=== PATIENT | female | born 1950 | race Caucasian/White ===

== ENCOUNTER 2022-04-11 16:02 | Outpatient (CLI) | payer MEDICARE, BC, SELFPAY ==
[2022-04-11 17:57] LABS: Vitamin D 25 Hydroxy* 37 ng/mL (30-80)
== END 2022-04-11 16:03 | disposition home or self-care (01) ==
PROVIDERS: PCP Internal Medicine; Visit Provider Internal Medicine
DX: E03.9 Hypothyroidism, unspecified (principal); M85.80 Other specified disorders of bone density and structure, unspecified site
CPT/HCPCS: 82306; 84443

== ENCOUNTER 2022-07-09 12:48 | Outpatient (CLI) | payer MEDICARE, BC, SELFPAY ==
--- NOTE | 2022-07-09 13:00 | CRLHL7_ITS ---
For Patients: As a result of the Cures Act, medical imaging exams and procedure reports are released immediately into your electronic medical record. You may view this report before your referring provider. If you have questions, please contact your health care provider. BILATERAL SCREENING MAMMOGRAM WITH COMPUTER-AIDED DETECTION AND TOMOSYNTHESIS TECHNIQUE: CC and MLO views were obtained. These mammographic images have been obtained using full-field digital technique. These mammographic images were interpreted with the benefit of computer-aided detection. Breast Tomosynthesis was used in this interpretation. COMPARISON FILM: 01/17/21, 07/31/19, 07/03/17. FINDINGS: There are scattered areas of fibroglandular density IMPRESSION: There is no radiographic evidence for malignancy. ASSESSMENT: BI-RADS Category 1: Negative RECOMMENDATION: Routine screening mammogram in 1 year. A lay language report of this examination will be provided to the patient. Gabriele De Anda M.D. Diagnostic Radiologist [email or web address] DEVON/[email or web address] Transcribed: 8:08 p.m. ANDRESSA/Dictated by: Gabriele De Anda MD @ 07/10/2022 11:47:00 AM (Electronically Signed)
== END 2022-07-09 12:49 | disposition home or self-care (01) ==
LOC: MAMMO 12:48
PROVIDERS: PCP Internal Medicine; Visit Provider Internal Medicine
DX: Z12.31 Encounter for screening mammogram for malignant neoplasm of breast (principal)
CPT/HCPCS: 77063; 77067

== ENCOUNTER 2022-11-16 09:18 | Outpatient (CLI) | payer MEDICARE, BC, SELFPAY | END 2022-11-16 09:19 | disposition home or self-care (01) | LOC: NFLDREF 11-17 08:31 | PROVIDERS: PCP Internal Medicine; Referring Provider Internal Medicine; Visit Provider Internal Medicine | DX: Z79.01 Long term (current) use of anticoagulants (principal) | CPT/HCPCS: 85610 ==

== ENCOUNTER 2022-12-17 13:36 | Outpatient (CLI) | payer MEDICARE, BC, SELFPAY | END 2022-12-17 13:37 | disposition home or self-care (01) | LOC: NFLDREF 12-18 02:34 | PROVIDERS: PCP Internal Medicine; Referring Provider Internal Medicine; Visit Provider Internal Medicine | DX: Z79.01 Long term (current) use of anticoagulants (principal) | CPT/HCPCS: 85610 ==

== ENCOUNTER 2023-04-08 09:00 | Outpatient (CLI) | payer MEDICARE, BC, SELFPAY | END 2023-04-08 09:01 | disposition home or self-care (01) | LOC: NFLDREF 11:21 | PROVIDERS: PCP Internal Medicine; Visit Provider Internal Medicine | DX: Z79.01 Long term (current) use of anticoagulants (principal) | CPT/HCPCS: 85610 ==

== ENCOUNTER 2023-04-30 09:45 | Emergency (ER) | payer MEDICARE, BC, SELFPAY ==
[2023-04-30 09:54] VITALS: BP 145/98; PULSE 93; RESP 14; TEMP 36.1; O2SAT 94; BMI 341.1
--- NOTE | 2023-04-30 10:04 | ED.ARRPALP ---
HPI - Arrhythmia/Palpitations General Time Seen by Provider: 10:07 Date Seen: 04/30/23 Chief Complaint: Arrhythmia/Palpitations Stated Complaint: possible afib Time Seen by Provider: 04/30/23 09:58 Source: patient, RN notes reviewed and old records reviewed Mode of arrival: ambulatory Limitations: no limitations History of Present Illness HPI narrative: Patient is a 72-year-old female presenting to the ED of her own accord with concern some skipped beats she is feeling, occasional discomfort in her chest and epigastric area, right arm pain that is happened twice, feeling shaky at times and some feeling of warmth at night between 10 and 11 with her forehead being a little sweaty. Over the last week she has noticed just a since maybe of more skipped beats. She has chronic underlying atrial fibrillation and has been on metoprolol and Coumadin, is due to have her INR checked next week. She has also noted some fleeting episodes of couple seconds where she will feel some lower central chest discomfort or epigastric discomfort, it is very fleeting, only lasting seconds. She has also had on 2 occasions with the last 1 being last night where she awoke with a little right forearm pain. She has had episodes where she has felt a little shaky more recently. Over the last week at night between 10 11 she will feel hot in her forehead will proceed by her a little bit. She has noted no fevers. She has not been sick with any cough or cold symptoms. She has had no associated GI symptoms with this. She feels fine right now. She is not having any symptomatology at this time. With her symptoms, she cannot state that there exercise induced or have any pattern. She admits that she has tapered off exercise significantly this last year but plans to try to restart. She has recently rejoin the weight loss program that she has been involved with in the past. See that her last TSH was in March of 2022, will recheck that today. complaint: skipped beats and atrial fibrillation Related Data Home Medications Medication Instructions Recorded Confirmed calcium carbonate 600 mg-vitamin 1 cap PO DAILY 05/10/22 09/05/22 D3 10 mcg (400 unit) capsule multivitamin (Multiple Vitamins 1 tab PO QAM 05/10/22 09/05/22 tablet) omega-3 fatty acids 1,250 mg 1,250 mg PO QDAY 05/10/22 09/05/22 capsule triamcinolone acetonide 0.1 % 1 applic topical BID PRN 08/30/22 09/05/22 lotion Previous Rx's Medication Instructions Recorded bupropion HCl 150 mg 24 hr tablet, 150 mg PO QDAY #90 tabs 05/10/22 extended release levothyroxine 150 mcg tablet 150 mcg PO QDAY #45 tabs 05/10/22 levothyroxine 175 mcg tablet 175 mcg PO QDAY #45 tabs 05/10/22 metoprolol succinate 100 mg 100 mg PO BID #180 tabs 05/10/22 tablet,extended release 24 hr prednisone 20 mg tablet 20 mg PO QDAY #7 tabs 08/30/22 warfarin 2.5 mg tablet 2.5 mg PO QDAY #90 tabs 01/28/23 Allergies Allergy/AdvReac Type Severity Reaction Status Date / Time levofloxacin Allergy Intermediate Joint Pain Verified 09/05/22 11:30 latex Allergy Mild itchy, rash Verified 09/05/22 11:30 codeine AdvReac Unknown Agitated Verified 04/30/23 10:02 Review of Systems Status of ROS: Reports: 10 or more systems reviewed and unremarkable except as noted in History and below PFSH PFS Surgical History History of total hysterectomy with bilateral salpingo-oophorectomy (BSO) ?Z90.710 - Acquired absence of both cervix and uterus (ICD-10) ?Z90.722 - Acquired absence of ovaries, bilateral (ICD-10) ?Z90.79 - Acquired absence of other genital organ(s) (ICD-10) History of cholecystectomy ?Z90.49 - Acquired absence of other specified parts of digestive tract (ICD-10) History of benign breast biopsy ?Z98.890 - Other specified postprocedural states (ICD-10) Family History Family/Other Depression Father Heart disease Social History Smoking Status: Never smoker Do you use any of these nicotine containing products: None Second hand tobacco smoke exposure: Yes How often do you have a drink containing alcohol: monthly or less How often do you have six or more drinks on one occasion: Never AUDIT-C Alcohol total score: 1 Non-prescribed substance use: denies use Little interest or pleasure in doing things: several days Feeling down, depressed, or hopeless: several days Exam Const: Vital Signs, click to edit/add: Vital Signs - 24 hr 04/30/23 09:54 04/30/23 10:13 Temperature 96.9 F L Pulse Rate [Pulse Oximeter] 93 Respiratory Rate 14 Blood Pressure [Ri ght Upper Arm] 145/98 H Pulse Oximetry 94 97 Oxygen Delivery Me thod Room Air Aline is a 72-year-old female that is obese, resting in the ER bed. She is very comfortable appearing, very pleasant, able to speak in complete sentences. Sclera clear, conjugate gaze, pupils appear equal. Symmetrical facial function, speech is normal. Neck is supple, no masses, no thyromegaly masses or nodules. Lungs are clear, good air entry, no wheezing or crackles, no tachypnea. CV sounds mostly regular, is not fast, no murmur heard. Abdomen without any tenderness, no palpable masses but body habitus does preclude this. She has no lower extremity edema. She is on cardiac monitoring at this time and I do see that she is in atrial fibrillation, rate controlled. Documenting provider has reviewed patient's vital signs: yes Course Course Hospital Course: Will have patient on cardiac monitoring and pulse oximetry. Obtained chest x-ray, obtain appropriate labs. We will make sure her troponin is normal. She is completely asymptomatic at this time. She understands that she very well may indeed need a stress test and potentially outpatient cardiac monitoring with something like a Holter or ZIO patch. Will make sure labs are looking normal, monitor her to ensure no concerning changes with her atrial fibrillation. Will make sure her INR is therapeutic. Will check screening TSH on her and make sure electrolytes are good. If her labs in evaluation here normal, we will discharge to further outpatient follow-up and workup with her primary provider. Reevaluation(s) Time of Reevaluation #1: 11:20 Reevaluation #1: Have reviewed with Aline that her chest x-ray is showing no acute pathology, heart enzyme is normal, labs are stable. We did review her INR. There is a TSH that is pending, if this is abnormal will need follow-up with her primary care provider. She has an appointment next week. We did discuss that there is no evidence of a heart attack her elevated heart enzymes. This does not completely rule out underlying ischemic disease. If she is having progressive symptoms in the interim, does need to return here for further evaluation. As far as this right arm pain that is awoke her twice at night, very difficult to say what this is at this moment. She is having no symptoms now. We reviewed the point that if she is having worsening or progressing symptoms, she will need re-evaluation. Vital Signs Vital signs: Initial Vital Signs Temperature 96.9 F L 04/30/23 09:54 Temperature Source Temporal Artery Scan 04/30/23 09:54 Pulse Rate 93 04/30/23 09:54 Pulse Rhythm Regular 04/30/23 09:54 Respiratory Rate 14 04/30/23 09:54 Blood Pressure 145/98 H 04/30/23 09:54 Blood Pressure Mean 113 H 04/30/23 09:54 Blood Pressure Position Supine 04/30/23 09:54 Pulse Oximetry 94 04/30/23 09:54 Oxygen Delivery Method Room Air 04/30/23 09:54 Vital Signs Temperature 96.9 F L 04/30/23 09:54 Pulse Rate 93 04/30/23 09:54 Respiratory Rate 14 04/30/23 09:54 Blood Pressure 145/98 H 04/30/23 09:54 Pulse Oximetry 94 04/30/23 09:54 Oxygen Delivery Method Room Air 04/30/23 09:54 Temperature 96.9 F L 04/30/23 09:54 Pulse Rate 93 04/30/23 09:54 Respiratory Rate 14 04/30/23 09:54 Blood Pressure 145/98 H 04/30/23 09:54 Pulse Oximetry 97 04/30/23 10:13 Oxygen Delivery Method Room Air 04/30/23 09:54 MDM - Arrhythmia/Palpitations Lab Data Attestation: I reviewed the patient's lab results. Labs: Lab Results 04/30/23 04/30/23 Range/Units 10:05 10:13 WBC 7.20 (4.50-11.00) K/uL RBC 5.07 (4.00-5.20) m/uL Hgb 15.2 (12.0-16.0) gm/dL Hct 46.5 (33.0-51.0) % MCV 92 (80-100) fL MCH 30 (26-34) pg MCHC 33 (32-36) gm/dL RDW Coeff of Jacque 13.5 (11.5-15.5) % Plt Count 301 (140-440) K/uL Neut % (Auto) 64.2 (42.0-72.0) % Lymph % (Auto) 24.6 (20-44) % Harrison % (Auto) 6.5 (0.0-11.0) % Eos % (Auto) 4.0 (0.0-7.0) % Baso % (Auto) 0.6 (0.0-3.0) % Neut # (Auto) 4.62 (1.7-7.0) K/uL Lymph # (Auto) 1.77 (0.90-2.90) K/uL Harrison # (Auto) 0.50 (0.00-0.90) K/UL Eos # (Auto) 0.29 (0.00-0.50) K/uL Baso # (Auto) 0.04 (0.00-0.30) K/uL Abs Immat Gran (auto) 0.01 (0.00-0.30) K/uL Imm/Tot Granulo (auto) 0.1 % INR 2.19 H (0.91-1.10) Sodium 140 (135-149) mmol/L Potassium 3.6 (3.6-5.1) mmol/L Chloride 107 (96-114) mmol/L Carbon Dioxide 22 (20-32) mmol/L Anion Gap 11 (7-15) mEq/L BUN 32 H (7-30) mg/dL Creatinine 0.9 (0.5-1.5) mg/dL Estimated Creat Clear 50.91 Estimated GFR 69 ml/min Glucose 111 (60-115) mg/dL Calcium 10.0 (8.4-10.6) mg/dL Magnesium 2.0 (1.5-2.6) mg/dL Total Bilirubin 0.7 (0.1-1.5) mg/dL AST 30 (12-35) U/L ALT 27 (4-35) U/L Alkaline Phosphatase 59 (40-150) U/L Total Protein 7.9 (6.0-8.3) g/dL Albumin 4.5 (3.3-5.0) g/dL TSH 0.799 (0.270-4.200) uIU/mL POC Troponin I 0.00 L (0.01-0.04) ng/ml Imaging Data Chest x-ray: Attestation: I have reviewed the pertinent imaging results. My impression: Cardiomegaly, no identified CHF for infiltrate on my preliminary review, wait radiology over read. Radiologist's impression: Patient: ALINE IRIZARRY Facility:?[facility] Patient ID:?[id number] Site Patient ID:?[id number]. Site :?[id number] Study:?XRay Chest 1 VIEW PORTABLE-04/30/2023 10:30:24 AM Ordering Physician:Tee Gruber Final Report: INDICATION: CHEST DISCOMFORT TECHNIQUE: Chest 1 view COMPARISON: None FINDINGS: Cardiac silhouette is enlarged. Tortuosity of the aorta. No dense infiltrate. No thickening of the interlobular septa. Degenerative changes of both shoulders. IMPRESSION: Marked enlargement of the cardiac silhouette, cardiomyopathy versus pericardial effusion. Clear lungs. Dictated by Gabriele De Anda MD @ 04/30/2023 10:57:21 AM (Electronic Signature) ECG Data Attestation: I personally reviewed and interpreted this ECG as follows: (Atrial fibrillation, 83 beats per minute. Incomplete right bundle branch block. Nonspecific ST changes. QT corrected 432 milliseconds.) ECG interpretation date: 04/30/23 ECG interpretation time: 10:20 Discharge Plan Discharge Clinical Impression: Palpitations, Chronic atrial fibrillation, Chest pain Patient Disposition: Home, Self-Care Condition: Stable Instructions: Chest Pain (ED), Heart Palpitations (ED) Additional Instructions: INR today was 2.19, please notify her clinic and have them decide on when you need your next INR checked. Follow-up next week as scheduled with your primary care provider. Need to discuss with her possibly doing outpatient cardiac monitoring, consideration of stress testing if she feels it is appropriate or necessary, ultimately defer to her expertise. In the meantime, if you have progressive or worsening symptoms, do recommend re-evaluation here in the ED. The TSH did come back susana just prior to discharge, stay on your same dose levothyroxine. Would not start an exercise program until you have been cleared by your primary care provider. Activity Level: Activity as Tolerated Prescriptions: No Action multivitamin [Multiple Vitamins] Tablet 1 tab PO QAM calcium carbonate-vitamin D3 600 mg-10 mcg (400 unit) capsule 1 cap PO DAILY omega-3 fatty acids 1,250 mg capsule 1,250 mg PO QDAY levothyroxine 175 mcg tablet 175 mcg PO QDAY Qty: 45 3RF Rx Instructions: alternate every other day with 150 mcg levothyroxine 150 mcg tablet 150 mcg PO QDAY Qty: 45 3RF Rx Instructions: alternate every other day with 175 mcg metoprolol succinate 100 mg tablet extended release 24 hr 100 mg PO BID Qty: 180 3RF bupropion HCl 150 mg tablet extended release 24 hr 150 mg PO QDAY Qty: 90 3RF triamcinolone acetonide 0.1 % lotion 1 applic topical BID PRN prednisone 20 mg tablet 20 mg PO QDAY Qty: 7 0RF warfarin 2.5 mg tablet 2.5 mg PO QDAY Qty: 90 0RF Protocol: Dose Management Condition: Saturday Dose/Route: 2.5 mg Instruction: 1 x 2.5 mg tablet Condition: Saturday Dose/Route: 2.5 mg Instruction: 1 x 2.5 mg tablet Condition: Saturday Dose/Route: 2.5 mg Instruction: 1 x 2.5 mg tablet Condition: Saturday Dose/Route: 2.5 mg Instruction: 1 x 2.5 mg tablet Condition: Dose/Route: 2.5 mg Instruction: 1 x 2.5 mg tablet Condition: Saturday Dose/Route: 2.5 mg Instruction: 1 x 2.5 mg tablet Condition: Saturday Dose/Route: 2.5 mg Instruction: 1 x 2.5 mg tablet Protocol Text: Adjustment Start Date: Saturday04/08/23 INR Value: 2.85 INR Date: 04/08/23 Recheck Date: 05/06/23 Rx Instructions: 2.5 mg daily Follow Up/Referrals: Gi Lucia MD [Primary Care Provider] - Stand Alone Forms: [employer] Info Instructions
--- NOTE | 2023-04-30 10:12 | CRLHL7_ITS ---
For Patients: As a result of the Cures Act, medical imaging exams and procedure reports are released immediately into your electronic medical record. You may view this report before your referring provider. If you have questions, please contact your health care provider. INDICATION: CHEST DISCOMFORT TECHNIQUE: Chest 1 view COMPARISON: None FINDINGS: Cardiac silhouette is enlarged. Tortuosity of the aorta. No dense infiltrate. No thickening of the interlobular septa. Degenerative changes of both shoulders. IMPRESSION: Marked enlargement of the cardiac silhouette, cardiomyopathy versus pericardial effusion. Clear lungs. Dictated by Gabriele De Anda MD @ 04/30/2023 10:57:21 AM (Electronically Signed)
[2023-04-30 10:13] VITALS: O2SAT 97
[2023-04-30 10:25] LABS: Basophils Absolute Auto 0.04 K/uL (0.00-0.30); Basophils Percent Auto 0.6 % (0.0-3.0); Eosinophils Absolute Auto 0.29 K/uL (0.00-0.50); Hematocrit 46.5 % (33.0-51.0); Hemoglobin* 15.2 gm/dL (12.0-16.0); Immature Granulocytes Abs Auto 0.01 K/uL (0.00-0.30); Immature Granulocytes Pct Auto 0.1 %; Lymphocytes Absolute Auto 1.77 K/uL (0.90-2.90); Lymphocytes Percent Auto 24.6 % (20-44); Mean Corpuscular HGB Conc 33 gm/dL (32-36); Mean Corpuscular Hemoglobin 30 pg (26-34); Mean Corpuscular Volume 92 fL (80-100); Monocytes Percent Auto 6.5 % (0.0-11.0); Neutrophils Absolute Auto 4.62 K/uL (1.7-7.0); Neutrophils Percent Auto 64.2 % (42.0-72.0); Platelet Count* 301 K/uL (140-440); RDW Coefficient of Variation % 13.5 % (11.5-15.5); Red Blood Count 5.07 m/uL (4.00-5.20)
[2023-04-30 10:28] LABS: Slide Review Reflex No
[2023-04-30 10:40] LABS: Albumin* 4.5 g/dL (3.3-5.0); Chloride* 107 mmol/L (96-114); Potassium* 3.6 mmol/L (3.6-5.1); Sodium* 140 mmol/L (135-149)
[2023-04-30 10:42] LABS: Creatinine* 0.9 mg/dL (0.5-1.5); Est. Creatinine Clearance* 50.91; Estimated Glomerular Filt Rate 69 ml/min
[2023-04-30 10:43] LABS: Alanine Aminotransferase* 27 U/L (4-35); Alkaline Phosphatase* 59 U/L (40-150); Anion Gap 11 mEq/L (7-15); Aspartate Amino Transferase* 30 U/L (12-35); Bilirubin Total* 0.7 mg/dL (0.1-1.5); Blood Urea Nitrogen* 32 mg/dL (7-30); Carbon Dioxide* 22 mmol/L (20-32); Glucose* 111 mg/dL (60-115); Total Protein* 7.9 g/dL (6.0-8.3)
[2023-04-30 10:44] LABS: INR 2.19 (0.91-1.10); Prothrombin Time 25.5 Seconds
[2023-04-30 11:17] LABS: TSH With Reflex to FT4* 0.799 uIU/mL (0.270-4.200)
== END 2023-04-30 12:04 | disposition home or self-care (01) ==
PROVIDERS: Emergency Provider Family Medicine; PCP Internal Medicine
DX: R00.2 Palpitations (principal); R07.9 Chest pain, unspecified; I48.20 Chronic atrial fibrillation, unspecified
CPT/HCPCS: 36415; 71045; 80053; 83735; 84443; 84484; 85025; 85610; 93005; 94761; 99284; 99285

== ENCOUNTER 2023-05-07 13:38 | Outpatient (CLI) | payer MEDICARE, BC, SELFPAY | END 2023-05-07 13:39 | disposition home or self-care (01) | PROVIDERS: PCP Internal Medicine; Visit Provider Internal Medicine | DX: Z13.6 Encounter for screening for cardiovascular disorders (principal); M85.88 Other specified disorders of bone density and structure, other site; M85.80 Other specified disorders of bone density and structure, unspecified site | CPT/HCPCS: 80061; 82306 ==

== ENCOUNTER 2023-07-10 13:42 | Outpatient (CLI) | payer MEDICARE, BC, SELFPAY ==
--- NOTE | 2023-07-10 14:00 | CRLHL7_ITS ---
For Patients: As a result of the Century Cures Act, medical imaging exams and procedure reports are released immediately into your electronic medical record. You may view this report before your referring provider. If you have questions, please contact your health care provider. DXA BONE MINERAL DENSITY STUDY Reason for exam: Other specified disorders of bone density. Current height (in): 67. Weight (lb): 276. Menopause age: 55. Ethnicity: White. 1. Have you had a previous hip or vertebral fracture? No. 2. Have you had any fractures during your adult life which did not result from significant trauma (e.g., auto accident)? No. 3. Did either of your parents have a hip fracture? No. 4. Do you smoke? No. 5. Have you ever taken Glucocorticoids? No. 6. Do you have rheumatoid arthritis? No. 7. Do you have secondary osteoporosis? No. 8. Do you drink 3 or more alcoholic drinks per day? No. 9. Are you being treated for osteoporosis? No. 10. Have you ever taken any of the following medications: Actonel, Evista, Fosamax, Miacalcin, Reclast, Boniva, Forteo, HRT (i.e., estrogen/hormone therapy), Protelos, Prolia, Vitamin D, Calcium, other ??? please specify. ANSWER: Yes, vitamin D and calcium. 11. Do you have any of the following medical conditions: Anorexia or bulimia, asthma or emphysema, end stage renal disease, hyperparathyroidism, any seizure disorders, cancer, inflammatory bowel diseases, hysterectomy, other ??? please specify. ANSWER: Yes, hysterectomy. 12. What was your maximum height (inches)? 69. 13. Do you perform weight bearing exercise regularly? No. 14. Do you regularly consume dairy products? Yes 15. Do you drink caffeinated beverages? Yes. If female: 16. At what age did your period start? 15. 17. Are you premenopausal? No. 18. How many full-term pregnancies have you had? 0. 19. Have you ever missed your period for more than 6 months in a row (not including or menopause)? Not provided. TECHNIQUE: Bone mineral density study was performed using the [employer]. FINDINGS: The results of the study expressed as bone mineral density (BMD) are as follows: Lumbar spine L1, L2, L4: BMD: 1.230 g/cm2. T-score: 1.8. Z-score: 3.9 Neck Left: BMD: 0.712 g/cm2. T-score: -1.2. Z-score: 0.6 Right: BMD: 0.709 g/cm2. T-score: -1.3. Z-score: 0.6 Total Left: BMD: 0.855 g/cm2. T-score: -0.7. Z-score: 0.8 Right: BMD: 0.830 g/cm2. T-score: -0.9. Z-score: 0.6 IMPRESSION: Osteopenia. *Comparison exams done prior to 01/2020 were performed on different unit, [employer]. COMPARISON: Compared with scan of 06/05/2018, the bone mineral density has increased by 0.2 percent at the spine and increased by 1.4 percent at the hip. FRAX 10-year Fracture Risk Major Osteoporotic Fracture: 8.1% Hip Fracture: 0.9% Reported Risk Factors: [place] () Neck BMD= 0.709, BMI= 43.2 Input outside FRAX limits. Adjusted to: Pjltgc=341 kg. Gabriele De Anda M.D. Diagnostic Radiologist [email or web address] DEVON/[email or web address]/Dictated by: Gabriele De Anda MD @ 07/11/2023 8:12:00 AM (Electronically Signed)
== END 2023-07-10 13:43 | disposition home or self-care (01) ==
LOC: RAD 13:43
PROVIDERS: PCP Internal Medicine; Visit Provider Internal Medicine
DX: M85.88 Other specified disorders of bone density and structure, other site (principal)
CPT/HCPCS: 77080

== ENCOUNTER 2023-09-11 09:30 | Outpatient (RCR) | payer MEDICARE, BC, SELFPAY ==
--- NOTE | 2023-05-15 10:57 | PT.OPEX ---
PT [place] Outpatient Eval PT [facility] Outpatient Eval Start: 05/15/23 07:48 Freq: Status: Active Protocol: Document 05/15/23 07:48 TL (Rec: 05/15/23 10:57 TL [id number]) E-signed By Peyton Christopher, PT Physical Therapy Outpatient Evaluation Insurance Information Recert Due Date 08/09/23 Insurance Name Medicare B,Blue [employer] Medical Diagnosis Tendinopathy of left rotator cuff Treating Diagnosis Left shoulder pain, limited shoulder ROM, periscapular and RC weakness Referring MD Lucia Subjective Subjective Aline reports to PT with primary complaint of left shoulder pain with initial and gradual onset over the years which she attributes to being much more sedentary over the past year and heavy reliance on her arms to push up from a chair. She denies a specific injury. Pain is localized to anterolateral aspect of shoulder. Denies radicular symptoms or pain radiating up in to neck. Not getting much pain with resting-only with reaching arm mostly with palm down and getting up from chairs. She used to be consistent with going to [employer] [address] however has not gone for about a year. She liked using the nustep there. Goals are to reduce pain with reaching and pressing to perform ADLs with minimal pain. PMH: Osteoarthritis of left knee ( Acute) Severe - [id number] M17.12 - Unilateral primary osteoarthritis, left knee (ICD -10) Osteoarthritis of right knee ( Acute) Severe - [id number] M17.11 - Unilateral primary osteoarthritis, right knee ( ICD-10) Chronic atrial fibrillation ( Acute) Dxed 2005, on life-long warfarin I48.20 - Chronic atrial fibrillation, unspecified (ICD -10) Long-term (current) use of anticoagulants, INR goal 2.0-3 .0 (Acute) Indication: A. fib, Duration: Lifelong Z79.01 - half-way (current) use of anticoagulants (ICD-10) Hypothyroidism (Acute) Dxed 1985, on medication E03.9 - Hypothyroidism, unspecified (ICD-10) Seasonal allergic rhinitis ( Acute) Indoor and outdoor, on daily oral antigen drops through [facility] in past J30.2 - Other seasonal allergic rhinitis (ICD-10) Recurrent major depressive disorder (Acute) SSRI started again 04/11 F33.9 - Major depressive disorder, recurrent, unspecified (ICD-10) Osteopenia (Acute 06/05/18) Minimally osteopenic by her first ever DEXA 06/12 M85.80 - Other specified disorders of bone density and structure, unspecified site ( ICD-10) Obstructive sleep apnea syndrome (Acute) Saw ENT/sleep physician Dr. Clemente Vasquez 05/17, she had Dr. Montoya, DDS, make a palate guard, using since 02/15 G47.33 - Obstructive sleep apnea (adult) (pediatric) (ICD -10) Morbid obesity with body mass index (BMI) of 45.0 to 49.9 in adult (Acute) E66.01 - Morbid (severe) obesity due to excess calories (ICD-10) Z68.42 - Body mass index [BMI] 45.0-49.9, adult (ICD-10) Pain Comments -10/05 Date of Last Physician Visit 05/07/23 Current Work Status Retired Objective Other/Pertinent Objective Seated UE ROM (R/L): -Functional ER: T1/T1-stiff throughout range -Abd: 168/156 -FF: 160/131 -Functional IR: T7/T9-stiff throughout range UE Strength (R/L): -ER0: R: 4+/5, L: 4+/5 no pain -IR0: R: 5/5, L: 5/5 -FF: R: 5-/5, L: 4/5 no pain -Abduction: R: 4+/5, L: 3/5 * painful Impingement: -Ferrer-Blaine: + Bicep Tendon: -Speeds: - Rotator Cuff: -Drop Arm Test: mildly + -ER Lag: - -Belly Press: - Posture: rounded shoulders Functional Test Performed & Score SPADI: Assessment Assessment/Impression Patient is a 72 year old female presenting to physical therapy for evaluation and treatment of left shoulder pain. Patient presents with limited shoulder ROM, shoulder weakness-particularly with abd and mildly positive drop arm test consistent with RC tendinopathy with possible differential diagnosis including small supraspinatus tear. These impairments are limiting the patients ability to reach and press up to get out of a chair. D/t patients current function and state she remains appropriate for conservative management of her shoulder. Patient appears motivated to participate in PT and presents with good prognosis to improve mobility, strength, proprioception and return to functional activities with skilled physical therapy intervention. Primary Functional Limitations reach and presss up to get out of a chair. Plan of Care Rehabilitation Potential Good Physical Therapy Goals In 6 weeks (06/26/23) Patient demonstrates at least 160 degrees of shoulder flexion for ability to reach overhead into a high shelf, dress, and bathe without limitation. Pt will be able to perform sit to stand with <1/10 shoulder pain in order to get up/down from toilet In 10 weeks (07/24/23) Pt will exhibit 9 point improvement in SPADI Outcome measure to demonstrate functional improvement and progress towards goals. Pt will exhibit RC, GH, and periscapular strength no less than 4+/5 in order to return to all functional activities with 0/10 pain Treatment Plan/Direct Interventions Ice/Cold/Vasopneumatic,Joint Mobilization,Manual Therapy, Neuromuscular Re-ed,Self-Care/ Home Management,Therapeutic Activities,Therapeutic Exercises Patient Will Be Discharged From Therapy Completion of LTG(s), Independent w/HEP, Independently Progressing Evaluation Billing Untimed Code Treatment Minutes 28 Complexity Low Certification Information Initial Certification Date 05/15/23 Ending Certification Date 08/09/23 Provider Signature Shows Agreement With POC & Medical Necessity Physician Signature & Date Requested Please Sign/Date Here Physician Comment/Change : Physician NPI Number #
--- NOTE | 2023-08-13 08:04 | PT.OPDNX ---
[facility] Daily Note PT [facility] Outpatient Daily Note Start: 05/15/23 07:48 Freq: Status: Active Protocol: Document 08/12/23 12:45 TL (Rec: 08/12/23 16:10 KLAnant [id number]) E-signed By Peyton Christopher, PT PT OP Daily Progress Note Visit Information Note Type Recert/Progress Note Visit Number [id number] Insurance Information Recert Due Date 11/06/23 Insurance Name Medicare B,[employer] Medical Diagnosis Tendinopathy of left rotator cuff Treating Diagnosis Left shoulder pain, limited shoulder ROM, periscapular and RC weakness Referring MD Lucia Subjective Subjective Aline was progressing very well at her last PT appointment 07/23/23. Since that time she denies any recent trauma or injury to the shoulder however much more painful at this time with reaching overhead and out to the side such as reaching over to close her car door. She is discouraged since she was progressing so well up until about a week ago. Since the pain started she has been limiting her use of that shoulder and not doing her exercises. Pain Comments 6-04/04 worst Objective Other/Pertinent Objective 08/13/23: Seated UE ROM (R/L): -Functional ER: T1/T1 -Abd: 168/33 pre up to 106 post -FF: 160/86 pre up to 132 post -Functional IR: T7/T7 Prev: Seated UE ROM (R/L): -Functional ER: T1/T1 -Abd: 168/160 -FF: 160/140 -Functional IR: T7/T7 UE Strength (R/L): -ER0: R: 4+/5, L: 4+/5 no pain -IR0: R: 5/5, L: 5/5 -FF: R: 5-/5, L: 4/5 no pain -Abduction: R: 4+/5, L: 3/5 * painful Impingement: -Ferrer-Blaine: + Bicep Tendon: -Speeds: - Rotator Cuff: -Drop Arm Test: mildly + -ER Lag: - -Belly Press: - Posture: rounded shoulders Functional Test Performed & Score SPADI: 9130 SPADI 08/13/23: 96/130 Patient Instructed in Risks/Benefits Yes Therapeutic Exercise Therapeutic Exercise Minutes (minutes) 40 Therapeutic Exercise: To Restore Reassessment of objective Functional Status measures, progress and remaining impairments Supine punch 2x5 Sidelying punch 2x5 SLABIR x5 Sidelying ER 2x5 Wall abd iso 2x5x5 sec hold Counter walkback Review of current HEP with handouts Treatment Minutes Timed Code Treatment Minutes 40 Total Treatment Time 40 Billing Units Therapeutic Exercise Units 3 Assessment/Impression Assessment/Impression Patient notes setback in progress this week. This is her 8th therapy session and up until about 2 weeks ago she noted significant improvement in mobility and function. Since patient did not report any recent trauma and there was significant appreciable change in pain free ROM pre to post session today, PT and patient agree that she is appropriate to continue with conservative treatment. PT to restart certification today and if no appreciable mcc change in 4-6 weeks PT will make orthopedic referral. Patient in agreeance with plan. Plan of Care Physical Therapy Goals In 6 weeks (06/26/23)-adjusted to 09/09/23 Patient demonstrates at least 160 degrees of shoulder flexion for ability to reach overhead into a high shelf, dress, and bathe without limitation. Pt will be able to perform sit to stand with <1/10 shoulder pain in order to get up/down from toilet In 10 weeks (07/24/23)- adjusted to 10/10/23 Pt will exhibit 9 point improvement in SPADI Outcome measure to demonstrate functional improvement and progress towards goals. Pt will exhibit RC, GH, and periscapular strength no less than 4+/5 in order to return to all functional activities with 0/10 pain Daily Plan of Care Continue per POC Recertification Information Initial Certification Date 05/15/23 Recertification Start Date 08/12/23 Recertification Due Date 11/06/23 Reasons to Continue Skilled Therapy Patient was progressing very well in terms of near symmetrical shoulder ROM and function however mild setback noted over the past couple of weeks. Patient demonstrates significant improvement in pain free motion pre to post session 08/12/23 and anticipate she will continue to benefit from skilled PT services. Rehabilitation Potential Good Continued Plan of Care and Interventions Will continue to progress therapeutic exercise and neuromuscular reeducation as well as manual therapy techniques as needed 1x/wk for 4 weeks with decreasing frequency over the next 3 months Provider Signature Shows Agreement With POC & Medical Necessity Physician Comment/Change Comment or Changes Physician NPI Number #
== END 2023-12-20 14:27 | disposition home or self-care (01) ==
PROVIDERS: PCP Internal Medicine; Visit Provider Internal Medicine
DX: M67.912 Unspecified disorder of synovium and tendon, left shoulder (principal); Z51.89 Encounter for other specified aftercare
CPT/HCPCS: 97110; 97161; 97530

== ENCOUNTER 2023-11-25 09:24 | Outpatient (CLI) | payer MEDICARE, BC, SELFPAY | END 2023-11-25 09:25 | disposition home or self-care (01) | LOC: NFLDREF 11-27 07:07 | PROVIDERS: PCP Internal Medicine; Referring Provider Internal Medicine; Visit Provider Family Medicine | DX: I48.20 Chronic atrial fibrillation, unspecified (principal) | CPT/HCPCS: 85610 ==

== ENCOUNTER 2023-12-30 10:52 | Outpatient (CLI) | payer MEDICARE, BC, SELFPAY | END 2023-12-30 10:53 | disposition home or self-care (01) | LOC: NFLDREF 01-01 07:17 | PROVIDERS: PCP Internal Medicine; Referring Provider Internal Medicine; Visit Provider Family Medicine | DX: I48.20 Chronic atrial fibrillation, unspecified (principal); Z79.01 Long term (current) use of anticoagulants | CPT/HCPCS: 85610 ==

== ENCOUNTER 2024-01-15 13:24 | Outpatient (CLI) | payer MEDICARE, BC, SELFPAY | END 2024-01-15 13:25 | disposition home or self-care (01) | LOC: NFLDREF 02-04 10:03 | PROVIDERS: PCP Internal Medicine; Referring Provider Internal Medicine; Visit Provider Internal Medicine | DX: Z79.01 Long term (current) use of anticoagulants (principal) | CPT/HCPCS: 85610 ==

== ENCOUNTER 2024-04-03 08:00 | Outpatient (CLI) | payer MEDICARE, BC, SELFPAY ==
--- NOTE | 2024-04-03 08:15 | CRLHL7_ITS ---
For Patients: As a result of the Cures Act, medical imaging exams and procedure reports are released immediately into your electronic medical record. You may view this report before your referring provider. If you have questions, please contact your health care provider. BILATERAL SCREENING MAMMOGRAM WITH COMPUTER-AIDED DETECTION AND TOMOSYNTHESIS TECHNIQUE: CC and MLO views were obtained. These mammographic images have been obtained using full-field digital technique. These mammographic images were interpreted with the benefit of computer-aided detection. Breast Tomosynthesis was used in this interpretation. COMPARISON FILM: 07/09/22, 01/17/21, 08/10/19. FINDINGS: There are scattered areas of fibroglandular density IMPRESSION: There is no radiographic evidence for malignancy. ASSESSMENT: BI-RADS Category 1: Negative RECOMMENDATION: Routine screening mammogram in 1 year. A lay language report of this examination will be provided to the patient. Gabriele De Anda M.D. Diagnostic Radiologist [email or web address] DEVON/adriana / bM/Dictated by: Gabriele De Anda MD @ 04/03/2024 10:57:00 AM (Electronically Signed)
== END 2024-04-03 08:01 | disposition home or self-care (01) ==
LOC: MAMMO 08:01
PROVIDERS: PCP Internal Medicine; Visit Provider Internal Medicine
DX: Z12.31 Encounter for screening mammogram for malignant neoplasm of breast (principal)
CPT/HCPCS: 77063; 77067

== ENCOUNTER 2024-05-19 09:30 | Outpatient (CLI) | payer MEDICARE, BC, SELFPAY | END 2024-05-19 09:31 | disposition home or self-care (01) | LOC: NFLDREF 05-23 07:04 | PROVIDERS: PCP Internal Medicine; Referring Provider Internal Medicine; Visit Provider Internal Medicine | DX: E03.9 Hypothyroidism, unspecified (principal); M85.80 Other specified disorders of bone density and structure, unspecified site; I48.20 Chronic atrial fibrillation, unspecified; Z79.01 Long term (current) use of anticoagulants | CPT/HCPCS: 82306; 84443; 85610 ==

== ENCOUNTER 2024-07-09 09:30 | Outpatient (CLI) | payer MEDICARE, BC, SELFPAY | END 2024-07-09 09:31 | disposition home or self-care (01) | LOC: NFLDREF 14:19 | PROVIDERS: PCP Internal Medicine; Referring Provider Internal Medicine; Visit Provider Internal Medicine | DX: Z79.01 Long term (current) use of anticoagulants (principal) | CPT/HCPCS: 85610 ==

== ENCOUNTER 2025-04-16 11:16 | Outpatient (CLI) | payer MEDICARE, BC, SELFPAY ==
--- NOTE | 2025-04-16 11:30 | CRLHL7_ITS ---
For Patients: As a result of the Century Cures Act, medical imaging exams and procedure reports are released immediately into your electronic medical record. You may view this report before your referring provider. If you have questions, please contact your health care provider. INDICATION: BILATERAL SCREENING MAMMOGRAM, ASYMPTOMATIC 74 Y/O FEMALE COMPARISON: 04/03/2024, 07/09/2022, 01/17/2021 TECHNIQUE: Digital mammogram in CC and MLO projections including computer-aided detection (CAD) and tomosynthesis. BREAST COMPOSITION: There are scattered areas of fibroglandular density. FINDINGS: No suspicious findings. ASSESSMENT: BI-RADS 2 Benign RECOMMENDATION: Annual screening mammogram. A lay language report of this examination will be provided to the patient. Dictated by: Gabriele De Anda MD @ 04/20/2025 10:57:38 (Electronically Signed)
== END 2025-04-16 11:17 | disposition home or self-care (01) ==
LOC: MAMMO 11:16
PROVIDERS: PCP Internal Medicine; Visit Provider Internal Medicine
DX: Z12.31 Encounter for screening mammogram for malignant neoplasm of breast (principal)
CPT/HCPCS: 77063; 77067

== ENCOUNTER 2025-05-20 09:15 | Outpatient (CLI) | payer MEDICARE, BC, SELFPAY | END 2025-05-20 09:16 | disposition home or self-care (01) | LOC: NFLDREF 05-24 04:09 | PROVIDERS: PCP Internal Medicine; Referring Provider Internal Medicine; Visit Provider Internal Medicine | DX: E03.9 Hypothyroidism, unspecified (principal); M85.80 Other specified disorders of bone density and structure, unspecified site; I48.20 Chronic atrial fibrillation, unspecified | CPT/HCPCS: 82306; 84443 ==